=== PATIENT | male | born 1980 | race Caucasian/White ===

== ENCOUNTER 2020-09-24 18:40 | Emergency (ER) | payer OTHER ==
[~2020-09-24 18:40] MED LIST: BACTRIM DS TAB1 EACH PO; BACTROBAN OINT22 GM EXT; CLEOCIN HCL300 MG PO; FLEXERIL 10 MG10 MG PO; IBUPROFEN600 MG PO; LODINE CAP 300300 MG PO; VIBRAMYCIN100 MG PO
[2020-09-24] MEDS ORDERED: BACTROBAN OINT22 GM EXT (20:05)
[2020-09-24] MEDS ORDERED: IBUPROFEN600 MG PO (20:05)
[2020-09-24] MEDS ORDERED: BACTRIM DS TAB1 EACH PO (20:05)
== END 2020-09-24 20:15 | disposition home or self-care (01) ==
LOC: ER1 18:40
DX: L02.211 Cutaneous abscess of abdominal wall (principal); E11.9 Type 2 diabetes mellitus without complications; F17.210 Nicotine dependence, cigarettes, uncomplicated; Z79.4 Long term (current) use of insulin; Z86.14 Personal history of Methicillin resistant Staphylococcus aureus infection; Z88.0 Allergy status to penicillin
CPT/HCPCS: 10060; 87070; 87205; 99283

== ENCOUNTER 2020-12-30 01:30 | Inpatient (IN) | payer OTHER ==
[~2020-12-30] VITALS: Ht 190.5 cm; Wt 81.6 kg
[2020-12-30 07:37] LABS: HEMOGLOBIN 16.4 gm/dl (14.0-17.5); RED BLOOD COUNT 5.09 M/UL (4.20-5.50); WHITE BLOOD COUNT 6.5 K/UL (4.5-11.0)
[2020-12-30 08:01] LABS: BUN/CREATININE RATIO 31 (0-10)
[2020-12-30] MEDS ORDERED: LANTUS100 UNIT/1 SC (11:19)
[2020-12-30] MEDS ORDERED: NOVOLOG100 UNIT/1 SC (11:20)
[2020-12-30] MEDS ORDERED: LIPITOR10 MG PO (11:20)
[2020-12-30] MEDS ORDERED: LISINOPRIL2.5 MG PO (11:21)
[2020-12-30] MEDS ORDERED: HARD NAILS2500 MCG PO (11:21)
[2020-12-31 07:08] LABS: HEMOGLOBIN 15.9 gm/dl (14.0-17.5); RED BLOOD COUNT 4.95 M/UL (4.20-5.50); WHITE BLOOD COUNT 5.1 K/UL (4.5-11.0)
[2020-12-31 07:34] LABS: BUN/CREATININE RATIO 29 (0-10)
[2021-01-01 04:48] LABS: BUN/CREATININE RATIO 34 (0-10)
[2021-01-02 04:17] LABS: WHITE BLOOD COUNT 6.2 K/UL (4.5-11.0)
[2021-01-02 04:32] LABS: RED BLOOD COUNT 4.38 M/UL (4.20-5.50)
[2021-01-02 04:38] LABS: BUN/CREATININE RATIO 31 (0-10)
[2021-01-03 10:22] LABS: RED BLOOD COUNT 4.45 M/UL (4.20-5.50); WHITE BLOOD COUNT 6.1 K/UL (4.5-11.0)
[2021-01-03 10:46] LABS: BUN/CREATININE RATIO 35 (0-10)
--- NOTE | 2021-01-03 13:26 | NUR ---
REPORTED TO SURGERY THAT PTS CONSENT IS NOT SIGNED DUE TO DR LY PUTTING IN CONSENT FOR RIGHT TOE INSTEAD OF THE LEFT TOE. SURGERY STATES THEY WILL TELL DR LY ABOUT ERROR AND THEY WILL HAVE DR LY FIX CONSENT AND GET IT SIGNED WHEN PT GOES DOWN FOR SURGERY
[2021-01-04 04:36] LABS: HEMOGLOBIN 14.1 gm/dl (14.0-17.5); RED BLOOD COUNT 4.45 M/UL (4.20-5.50); WHITE BLOOD COUNT 6.5 K/UL (4.5-11.0)
[2021-01-04 04:54] LABS: BUN/CREATININE RATIO 35 (0-10)
[2021-01-04] MEDS ORDERED: BACTRIM DS TAB1 EACH PO (11:41)
[2021-01-04] MEDS ORDERED: HUMALOG 10100 UNITS/ SC (11:41)
[2021-01-04] MEDS ORDERED: POVIDONE-IOD28.35 GM TOP (11:59)
[2021-01-04] MEDS ORDERED: ASPIRIN 325MG325 MG PO (12:11)
[2021-01-04] MEDS ORDERED: PERCOCET 5/325 T1 EA PO (12:17)
--- NOTE | 2021-01-04 13:19 | NUR ---
INSTRRUCTED ON IMPORTANCE OF TAKING ALL MEDS ORFERED. CHECK FEET DAILY TO RECOGNIZE ANY PROBLEMS WITH FEET. ALWAYS WEAR SHOES., PAIN MEDS AT [facility]. NEW SCRIPT FOR OTHER MEDS. VERBALIZED UNDERSTANDING. JESSICA ORTIZ R.N.
--- NOTE | 2021-01-04 18:13 | NUR ---
DR. MEYER STATES DR. LY WILL BE COMING TO SEE PT AND DO HIS FIRST DRESSING CHANGE BEFORE PT IS DISCHARGED HOME TODAY.
== END 2021-01-04 20:50 | disposition home or self-care (01) | DRG 617 ==
LOC: ER1 01:30 → CDU 10:50 → MED SURG 4 10:50
PROVIDERS: Internal Medicine; Physician Assistant; Podiatrist Foot & Ankle Surgery; Student in an Organized Health Care Education/Training Program; ADMIT Internal Medicine
PROC: 0Y6N0Z4 Detachment at Left Foot, Complete 1st Ray, Open Approach (ICD-10-PCS; principal; 2021-01-03 10:45)
DX: E11.69 Type 2 diabetes mellitus with other specified complication (principal); M86.8X7 Other osteomyelitis, ankle and foot; E11.621 Type 2 diabetes mellitus with foot ulcer; E11.42 Type 2 diabetes mellitus with diabetic polyneuropathy; L03.032 Cellulitis of left toe; E11.65 Type 2 diabetes mellitus with hyperglycemia; Z72.0 Tobacco use; Z98.818 Other dental procedure status; Z91.14 Patient's other noncompliance with medication regimen; Z79.4 Long term (current) use of insulin; Z88.0 Allergy status to penicillin; Z88.8 Allergy status to other drugs, medicaments and biological substances; Z80.3 Family history of malignant neoplasm of breast
CPT/HCPCS: 36415; 73562; 73620; 73660; 73721; 80048; 80053; 80202; 80307; 82962; 83036; 83605; 85025; 85027; 85652; 86140; 87040; 87081; 87086; 93926; 96374; 96375; 99284; J0692; J2001; J2250; J2405; J2704; J2795; J3010; J3370; J7070; U0002